=== PATIENT | female | born 1990 | race Caucasian/White ===

== ENCOUNTER 2019-11-06 04:25 | Emergency (ER) | payer OTHER ==
[2019-11-06] MEDS ORDERED: LIDOCAINE 1%/EPINEPHRINE INJ 20 ML VIAL INJ ONE (04:58)
--- NOTE | 2019-11-06 05:00 | ER Document Report ---
ED Wound - General Chief Complaint: Laceration Stated Complaint: LACERATION Time Seen by Provider: 11/06/19 04:35 Primary Care Provider: RAIZA WILLIS MD [Primary Care Provider] - Follow up as needed Notes: Patient is a 29-year-old female that comes to the emergency department for chief complaint of laceration to her left wrist. Patient states that she was having an argument, she states she was walking backwards, tripped, tried to catch herself, turned mid air, and accidentally pushed her hand through the window in the trailer causing it to break. She states the glass caused a laceration to her left wrist. She states that it was bleeding heavily and she became concerned so she came to the emergency department. Patient denies self-harm, boyfriend is at bedside and also confirms patient's story. Patient reports she is up-to-date on her tetanus within 5 years. Patient states she does have a history of HIV. Patient denies any other complaints. Patient denies . - Related Data Allergies/Adverse Reactions: No Known Allergies Allergy (Unverified 11/06/19 04:39) Past Medical History - General Information source: Patient - Social History Smoking Status: Current Every Day Smoker Frequency of alcohol use: Occasional Drug Abuse: Heroin Lives with: Spouse/Significant other Family History: Reviewed & Not Pertinent Psychiatric Medical History: Reports: Hx Depression - anxiety Infectious Medical History: Reports: Hx HIV - Immunizations Immunizations up to date: Yes Hx Diphtheria, Pertussis, Tetanus Vaccination: Yes Review of Systems - Review of Systems Constitutional: No symptoms reported EENT: No symptoms reported Cardiovascular: No symptoms reported Respiratory: No symptoms reported Gastrointestinal: No symptoms reported Genitourinary: No symptoms reported Female Genitourinary: No symptoms reported Musculoskeletal: See HPI Skin: See HPI Hematologic/Lymphatic: No symptoms reported Neurological/Psychological: No symptoms reported Physical Exam - Vital signs Vitals: Temp Pulse Resp BP Pulse Ox 98.1 F 111 H 16 133/88 H 100 11/06/19 04:26 11/06/19 04:26 11/06/19 04:26 11/06/19 04:26 11/06/19 04:26 - Notes Notes: GENERAL: Alert, interacts well. No acute distress. HEAD: Normocephalic, atraumatic. EYES: Pupils equal, round, and reactive to light. Extraocular movements intact. ENT: Oral mucosa moist, tongue midline. Oropharynx unremarkable. Airway patent. NECK: Full range of motion. Supple. Trachea midline. No lymphadenopathy. LUNGS: Clear to auscultation bilaterally, no wheezes, rales, or rhonchi. No respiratory distress. Non-tender chest wall. HEART: Regular rate and rhythm. No murmur ABDOMEN: Soft, non-tender. Non-distended. Bowel sounds present in all 4 quadrants. GENITOURINARY: Deferred EXTREMITIES: There is a large approximately 7 cm almost linear laceration over the left volar wrist, horizontal, partial-thickness. Full range of motion of the wrist, normal strength and range of motion of all fingers including against resistance in flexion and extension. Normal capillary refill and sensation, normal radial pulse. Patient with very tiny superficial abrasions over several of the fingers over the palmar aspect of the hand as well, however no concerning injuries otherwise. Otherwise unremarkable upper extremity exam. BACK: no cervical, thoracic, lumbar midline tenderness. No saddle anesthesia, normal distal neurovascular exam. Moves all extremities in full range of motion. NEUROLOGICAL: Alert and oriented x3. Normal speech. Cranial nerves II through XII grossly intact. Strength 5/5 in all extremities. PSYCH: Normal affect, normal mood. SKIN: Warm, dry, normal turgor. No rashes or lesions noted. Course - Re-evaluation Re-evalutation: Patient and significant other at bedside both expressed regret over argument and both state that this was accidental. They are interactive and affectionate towards each other, patient denies suicidal ideation, I do have a low suspicion of this. X-ray unremarkable, wound was repaired with sutures after thorough cleansing, however because of small superficial tiny lacerations and abrasions over the hand decision was made to cover her with Keflex in case there are tiny foreign bodies. Discussed expectations, follow-up, return precautions. Patient states appreciation and agreement. - Vital Signs Vital signs: Temp Pulse Resp BP Pulse Ox 98.1 F 111 H 16 133/88 H 100 11/06/19 04:26 11/06/19 04:26 11/06/19 04:11/06/19 04:11/06/19 04:26 Procedures - Laceration/Wound Repair left wrist Wound length (cm): 7 Wound's Depth, Shape: Linear Laceration pre-procedure: Sterile PPE donned, Sterile drapes applied, Shur-Clens applied Anesthetic type: 1% Lidocaine w/epi Volume Anesthetic (mLs): 5 Wound explored: Clean, No foreign body removed Wound Repaired With: Sutures Suture Size/Type: 4:0, Ethilon Number of Sutures: 14 Layer Closure?: No Post-procedure wound care: Sterile dressing applied Post-procedure NV exam normal: Yes Discharge - Discharge Clinical Impression: Laceration of left wrist Qualifiers: Encounter type: initial encounter Qualified Code(s): S61.512A - Laceration without foreign body of left wrist, initial encounter Condition: Stable Disposition: HOME, SELF-CARE Additional Instructions: The x-ray does not show any concerning findings. The wound was repaired with sutures. Keep clean, clean with soap and water, dab dry, avoid soaking or scrubbing. You can apply thin film of topical antibiotic. Sutures need to be removed in about 7 days at a medical facility. Return sooner for any concerning symptoms including signs of infection such as developing pain, swelling, redness, discolored discharge, fever, or any other concerning symptoms. Prescriptions: Cephalexin Monohydrate [Keflex 500 mg Capsule] 500 mg PO QID 5 Days #20 capsule Forms: Return to Work Referrals: RAIZA WILLIS MD [Primary Care Provider] - Follow up as needed
--- NOTE | 2019-11-06 05:54 | RADIOLOGY REPORT (SQ) ---
EXAM: XR Left Wrist Complete, 3 or More Views EXAM DATE/TIME: 11/06/2019 5:35 AM CLINICAL HISTORY: The patient is 29 years old and is Female; injury, pain, ?glass FB TECHNIQUE: Frontal, lateral and oblique views of the left wrist. COMPARISON: No relevant prior studies available. FINDINGS: BONES/JOINTS: No acute fracture. No dislocation. SOFT TISSUES: Apparent small laceration at the anterior aspect of the wrist. No obvious radiopaque foreign body. IMPRESSION: Apparent small laceration at the anterior aspect of the wrist. No obvious radiopaque foreign body.
[2019-11-06 07:07] VITALS: BP 128/65
== END 2019-11-06 07:09 | disposition home or self-care (01) ==
LOC: EDSEX → ER 04:25
DX: S61.512A Laceration without foreign body of left wrist, initial encounter (principal); W01.110A Fall on same level from slipping, tripping and stumbling with subsequent striking against sharp glass, initial encounter; Y92.029 Unspecified place in mobile home as the place of occurrence of the external cause; F17.200 Nicotine dependence, unspecified, uncomplicated; B20 Human immunodeficiency virus [HIV] disease
CPT/HCPCS: 99283; 73110; 12002; J3490